=== PATIENT | male | born 1990 | race Hispanic/Latino ===

== ENCOUNTER 2022-09-04 23:27 | Emergency (ER) | payer OTHER ==
[~2022-09-04] VITALS: Ht 177.8 cm; Wt 174.2 kg
[2022-09-04] MEDS ORDERED: VANCOMYCIN 1G/250ML KIT 250 ML IV ONE (23:57)
[2022-09-04] MEDS ORDERED: VANCOMYCIN 500MG+NS 100ML 100 ML IV ONE (23:57)
[2022-09-04] MEDS ORDERED: TETANUS/DIPHTHERIA TOXOID [ADULT] 0.5 ML VIAL IM ONE (23:58)
[2022-09-05] MEDS ORDERED: DIPH,PERTUSS(ACELL),TET VAC/PF 0.5 ML VIAL IM ONE
[2022-09-05] MEDS ORDERED: 0.9%NACL 1000ML 1,000 ML IV SCH
[2022-09-05] MEDS ORDERED: VANCOMYCIN 1G VIAL IVPB ONE
[2022-09-05] MEDS ORDERED: ZOSYN 3.375GM +NS 50ML IVPB ONE
[2022-09-05] MEDS ORDERED: IBUPROFEN 800 MG TAB PO ONE
[2022-09-05] MEDS ORDERED: ACETAMINOPHEN 500 MG TABLET PO ONE
[2022-09-05] MEDS ORDERED: CLONIDINE HCL 0.1 MG TABLET PO ONE
[2022-09-05 00:09] LABS: BASOPHILS % (AUTO) 0.8 % (0.0-5.0); EOSINOPHILS % (AUTO) 0.7 % (0.0-8.0); HEMATOCRIT 45.7 % (42-54); LYMPHOCYTES % (AUTO) 25.1 % (21.0-51.0); MEAN CORPUSCULAR HEMOGLOBIN 26.2 pg (27.0-33.0); MEAN CORPUSCULAR HGB CONC 33.9 g/dL (32.0-36.0); MEAN CORPUSCULAR VOLUME 77.3 fL (79-99); MONOCYTES % (AUTO) 6.8 % (3.0-13.0); NEUTROPHILS % (AUTO) 66.4 % (40.0-77.0); PLATELET COUNT (AUTO) 294 K/uL (130-400); RED BLOOD CELL COUNT(AUTO) 5.91 MIL/uL (4.50-6.20); RED CELL DISTRIBUTION WIDTH 12.9 % (11.0-15.5); WHITE BLOOD COUNT (AUTO) 9.8 K/uL (4.8-10.8)
[2022-09-05 00:11] LABS: APPEARANCE,URINE CLEAR (CLEAR); BILIRUBIN,URINE NEGATIVE (NEGATIVE); COLOR,URINE YELLOW (YELLOW); GLUCOSE, URINE (UA) 500 mg/dL (NEGATIVE); KETONES,URINE NEGATIVE (NEGATIVE); LEUKOCYTE ESTERASE ,URINE 25 Leu/uL (NEGATIVE); NITRATE,URINE NEGATIVE (NEGATIVE); OCCULT BLOOD,URINE NEGATIVE (NEGATIVE); PROTEIN,URINE 30 mg/dL (NEGATIVE); UROBILINOGEN,URINE 0.2 mg/dL (0.2-1.0)
[2022-09-05 00:18] LABS: CALCIUM OXALATE CRYSTALS,UR RARE /LPF (None Seen); MUCUS,URINE FEW LPF (None Seen); SQUAMOUS EPITHELIAL CELL,UR FEW /HPF (0-2)
[2022-09-05 00:21] LABS: POTASSIUM 4.5 mmol/L (3.5-5.1)
[2022-09-05 00:25] LABS: ALBUMIN 3.4 g/dL (3.5-5.0); TOTAL PROTEIN, SERUM 8.4 g/dL (6.0-8.3)
[2022-09-05] MEDS ORDERED: CEPH500B PO (01:10)
[2022-09-05] MEDS ORDERED: IBUP-1493 PO (01:10)
[2022-09-05] MEDS ORDERED: LISI20TA24 PO (01:10)
[2022-09-05] MEDS ORDERED: METF-444 PO (01:10)
[2022-09-05] MEDS ORDERED: SULF1TAB42 PO (01:10)
[2022-09-05] MEDS ORDERED: METFORMIN HCL 500 MG TABLET PO ONE (01:30)
[2022-09-05] MEDS ORDERED: LISINOPRIL 20 MG TABLET PO ONE (01:30)
[2022-09-05] MEDS ORDERED: HYDRALAZINE 20MG/ML VIAL IV ONE (01:30)
[2022-09-05 02:00] VITALS: BP 151/93
== END 2022-09-05 03:49 | disposition home or self-care (01) ==
LOC: EDH 23:27
DX: L03.319 Cellulitis of trunk, unspecified (principal); E11.9 Type 2 diabetes mellitus without complications; I10 Essential (primary) hypertension; E78.5 Hyperlipidemia, unspecified; E66.01 Morbid (severe) obesity due to excess calories; Z68.43 Body mass index [BMI] 50.0-59.9, adult; Z79.899 Other long term (current) drug therapy; Z79.84 Long term (current) use of oral hypoglycemic drugs; Z91.010 Allergy to peanuts
CPT/HCPCS: 99291; 96365; 96361; 96375; 80053; 83690; 85025; 87040 ×2; 83605; 81001; 36415 ×2; 90714; 90471; 74176; J7030; J2543; J3370 ×2; 90715

== ENCOUNTER 2025-07-07 22:56 | Inpatient (IN) | payer SELFPAY ==
[~2025-07-07] VITALS: Ht 180.3 cm; Wt 176.4 kg
[~2025-07-07 22:56] MED LIST: CEPH500B PO; IBUP-1493 PO; LISI20TA24 PO; METF-444 PO; SULF1TAB42 PO
--- NOTE | 2025-07-07 23:21 | ERN ---
General Chief Complaint: Allergic Reaction Stated Complaint: C/O ALLERGIC REACTION Time Seen by MD: 23:00 History of Present Illness Initial Comments 34-year-old male no past medical history here for evaluation of shortness a breath and vomiting. Patient has not allergy to peanuts and earlier today had a candy that had peanuts in it. He was complaining of shortness a breath and tongue swelling. Just prior to arrival he had vomited once. He took a neighbors EpiPen around 8:00 p.m. however the symptoms returned thus he decided to come to emergency room for a evaluation Allergies: Coded Allergies: peanut (Unverified Allergy, Unknown, 07/02/17) Home Meds Active Scripts Ibuprofen (Motrin/Advil) 800 Mg Tab, 800 MG PO TID, #30 TAB Prov:SUSHANT SCALES MD 09/05/22 Sulfamethoxazole/Trimethoprim (Bactrim Ds Tablet) 1 Each Tablet, 1 TAB PO BID for 10 Days, #20 TAB 0 Refills Prov:SUSHANT SCALES MD 09/05/22 Cephalexin Monohydrate (Keflex) 500 Mg Cap, 500 MG PO QID for 30 Days, #30 CAP Prov:SUSHANT SCALES MD 09/05/22 Lisinopril (Lisinopril) 20 Mg Tablet, 20 MG PO DAILY, #30 TAB Prov:SUSHANT SCALES MD 09/05/22 Metformin HCl (Metformin HCl) 500 Mg Tablet, 500 MG PO BID, #60 TAB Prov:SUSHANT SCALES MD 09/05/22 Past Medical History Past Medical History: No Pertinent History Past Surgical History: Unknown Family History Family History: Negative Social History Social History: Negative Respiratory: (+) short of breath Gastrointestinal/Abdominal: (+) vomiting Review of Systems: was completed, & the rest were negative. Physical Exam Physical Exam Dictation GENERAL APPEARANCE : Uncomfortable appearing, obese, diaphoretic EYES lids/conjunctiva normal. EARS/NOSE/THROAT Mucous membranes moist, nares normal, lips/teeth normal uvula midline without oral pharyngeal erythema, exudate or swelling TMs normal bilate rally. No lymphangitis/lymphedema. HEAD/NECK normocephalic atraumatic, no facial trauma, neck is supple. RESPIRATORY respiratory effort normal, speaks in full sentences, no tripod position, no accessory muscle use. Lungs clear to auscultation without rhonchi, wheezes, rales CARDIAC Regular rate and rhythm, no edema. ABDOMINAL Soft, ND/NT. No evidence of fluid wave. No pulsatile masses on exam, rebound tenderness, Day sign or pain over Mcburney's point. MUSCLES/EXTREMITIES No abnormal range of motion, no swelling. SKIN Warm, pink and dry. No rashes, dermatoses, petechiae or lesions. NEUROLOGICAL Speech is clear and appropriate. Normal level of consciousness. Gait and coordination are normal. 5/5 strength in all extremities. PSYCH Normal mood and affect. Judgement/competence is appropriate MDM 34-year-old male here for evaluation of allergic reaction to peanuts after consuming chocolate with the peanuts in it. He took an EpiPen prior to arrival however symptoms returned. He is complaining of shortness a breath, tongue swelling and feeling of throat closing and had one episode of vomiting just prior to arrival. I will treat this currently as an anaphylactic reaction and give him another dose of epi, give fluids, give prednisone, give antihistamine and reassess. Re-evaluation 11:56 p.m.: Given that he has a swollen tongue, shortness a breath, and vomiting after epinephrine, he may have rebound symptoms if we are to discharge him home at this time. Therefore I will admit the patient for further management and evaluation ED Course Orders Procedure Category Date Status Time Epinephrine Pf 1mg PHA 07/07/25 Complete (1:1,000) (Adrenaline 23:30 0.9%Nacl 1000ml (Ns PHA 07/07/25 In Process 1000ml) 23:30 Epinephrine Pf 1mg PHA 07/07/25 Complete (1:1,000) (Adrenaline 23:10 Methylprednisolone PHA 07/07/25 Complete Succ 125mg (Solu-Medr 23:30 Diphenhydramine Hcl PHA 07/07/25 Complete (Benadryl Inj) 23:30 Current Medications Medications (Trade) Dose Ordered Sig/Isabela Route PRN Reason Start Time Stop Time Status Last Admin Dose Admin Diphenhydramine HCl (BENAdryl INJ) 25 mg ONCE ONCE IV 07/07/25 23:30 07/07/25 23:31 DC 07/07/25 23:22 Epinephrine HCl (ADRENaline PF 1MG AMP) 0.3 mg ONCE ONCE IM 07/07/25 23:30 07/07/25 23:31 DC 07/07/25 23:20 Epinephrine HCl (ADRENaline PF 1MG AMP) 1 mg STK-MED ONCE .ROUTE 07/07/25 23:10 07/07/25 23:10 DC Methylprednisolone Sodium Succinate (Solu-medROL 125MG) 125 mg ONCE ONCE IM 07/07/25 23:30 07/07/25 23:31 DC 07/07/25 23:22 Sodium Chloride 1,000 ml @ 0 mls/hr Q0M IV 07/07/25 23:30 08/06/25 23:29 07/07/25 23:23 Vital Signs Date Time Temp Pulse Resp B/P (MAP) Pulse Ox O2 Delivery O2 Flow Rate FiO2 07/07/25 22:59 97.2 102 20 168/103 97 Room Air DX & DISP Disposition: Inpatient Departure Impression: Primary Impression: Anaphylactic reaction Condition: Stable Referrals: SELF,REFERRAL (PCP) MAYLIN GOLDSTEIN MD Jul 07, 2025 23:21
[2025-07-07] MEDS: 0.9%NACL 1000ML 1,000 ML IV SCH (23:23)
[2025-07-08 00:30] LABS: CREATININE 1.0 mg/dL (0.5-1.3); GLOMERULAR FILTR. RATE CALC 100.0 mL/min (>90); GLUCOSE,RANDOM 310.0 mg/dL (70-105); SODIUM SERUM 135.0 mmol/L (136-145); UREA NITROGEN, BLOOD 11.0 mg/dL (7-18)
[2025-07-08 00:35] LABS: IMMATURE GRANULOCYTE ABSOLUTE 0.05 K/uL (0-1); NUCLEATED RED BLOOD CELLS 0.0 % (0.0-0.19); PLATELET COUNT (AUTO) 327 K/uL (130-400); RED BLOOD CELL COUNT(AUTO) 6.06 MIL/uL (4.50-6.20); RED CELL DISTRIBUTION WIDTH 13.3 % (11.0-15.5); WHITE BLOOD COUNT (AUTO) 14.8 K/uL (4.8-10.8)
--- NOTE | 2025-07-08 01:02 | HP ---
[facility] PH[facility] Date of Service: Jul 08, 2025 Time of Service: 01:02 PCP: Self Referral HISTORY OF PRESENT ILLNESS: This is a 34 year old male morbidly obese with no pertinent medical and surgical history who was brought by to the ED for complaints of shortness of breath and vomiting prior to Er arrival today.Patient reports he has allergy to peanuts and gave him chocolate candy with cashew nuts on it that they both didnt know and after swallowing it patient started itching on his ears and started having hoarse voice,tongue began to swell and face and became short of breath as per neighbor has Epipen and gave him Epi and po Benadryl,symptoms was not relieved so patient came to the ED for evaluation. Upon ER arrival patient was given Epinephrine 0.3mg IM,Benadryl 25 mg IV,Solumedrol 125 mg IV and NS 1 Liter.Patient symptoms have subsided.Seen and examined patient in the ED awake,alert and coherent,patient reports he is able to swallow his saliva now,speech is clear and tongue swelling has subsided.Patient denies fever,chills,chest pain,cough and shortness of breath. Latest vital signs temperature 97.2, heart rate 100, blood pressure 158/82 saturation 98% on room air. Labs: WBC 14, hemoglobin 16, hematocrit 46, platelet count 327. Sodium 135, potassium 3.2, chloride 97 random glucose 310. We will admit patient for further medical management. REVIEW OF SYSTEMS CONSTITUTIONAL: Denies fevers, chills, or night sweats. No unintentional weight loss reported. NEUROLOGICAL: Denies headache, amaurosis fugax, motor weakness, sensory deficit, vertigo/spinning sensation, gait abnormalities, or tremors. ENT: No hearing loss, otalgia, otorrhea, rhinitis, rhinorrhea, hoarseness, or sore throat. CARDIOVASCULAR: Denies any exertional angina, dyspnea on exertion, orthopnea, paroxysmal nocturnal dyspnea, palpitations, life-threatening arrhythmias, claudication. PULMONARY: Denies any shortness of breath, cough, phlegm/sputum, hemoptysis, pleuritic chest pain. SLEEP: Denies morning headaches, daytime somnolence or napping. Denies difficulty falling asleep, staying asleep, waking from sleep. Denies knowledge of snoring. GASTROINTESTINAL: Denies any type of dysphagia to either liquids or solids. Denies nausea, vomiting, pyrosis, early satiety, abdominal pain, diarrhea, constipation, or changes in stool consistency or caliber. Denies coffee-ground emesis, hematemesis, hematochezia, or melanotic stools. GENITOURINARY: Denies frequency, urgency, nocturia, hematuria or incontinence (Storage/Irritative symptoms.) Low urinary stream, straining to void, urinary intermittency or hesitancy, splitting of the voiding stream, terminal dribbling. ENDOCRINOLOGIC: Denies polyuria, polydipsia, polyphagia or heat/cold intolerances. HEMATOLOGIC: Denies thrombophilia/previous clots, or coagulopathy/bleeding disorders. ONCOLOGIC: Denies personal history of malignancy. DERMATOLOGIC: Denies rashes or pruritus. PSYCHIATRIC: Denies any suicidal or homicidal ideation. Denies hallucinations. PAST MEDICAL HISTORY: [ Patient denies ] PAST SURGICAL HISTORY: [ Patient denies ] PAST SOCIAL HISTORY: [ Patient lives with . Patient denies alcohol tobacco and recreational drug use ] FAMILY HISTORY: [ Hypertension and diabetes ] Coded Allergies: peanut (Unverified Allergy, Unknown, 07/02/17) PHYSICAL EXAM GENERAL APPEARANCE: The patient is awake, alert, and oriented, in no acute cardiopulmonary distress. NEUROLOGICAL: Cranial nerves II-XII grossly intact. Motor is 5/5 in bilateral upper and lower extremities proximal to distal. No sensory deficits. HEENT: Face is symmetric. Pupils are equal and reactive. Extraocular movements are intact. NECK: Supple. No JVD. No thyromegaly. No submental, submandibular, pre- /postauricular, occipital or supraclavicular lymphadenopathy. CHEST: Normal chest expansion. No Telemetry. LUNGS: Absence of any rales, rhonchi or any wheezing. CARDIOVASCULAR: Regular. S1 and S2 normal. No appreciable rubs, murmurs or gallops. ABDOMEN: Soft, nontender, and nondistended. There is no rebound, voluntary guarding, or rigidity. : Deferred. No [place]. EXTREMITIES: Non-edematous and not cyanotic. No clubbing. Good capillary refill. SKIN: No skin breakdown. Vital Sign (Last 24 Hours) 07/07/25 07/08/25 22:59 00:30 Temp 97.2 Pulse 100 Resp 19 B/P (MAP) 158/82 Pulse Ox 98 O2 Delivery Room Air* O2 Flow Rate 0 FiO2 21 LABS: Laboratory: Test 07/08/25 00:17 Range/Units White Blood Count 14.8 H 4.8-10.8 K/uL Red Blood Count 6.06 4.50-6.20 MIL/uL Hemoglobin 16.1 14.0-18.0 g/dL Hematocrit 46.8 42-54 % Mean Corpuscular Volume 77.2 L 79-99 fL Mean Corpuscular Hemoglobin 26.6 L 27.0-33.0 pg Mean Corpuscular Hemoglobin Concent 34.4 32.0-36.0 g/dL Red Cell Distribution Width 13.3 11.0-15.5 % Platelet Count 327 130-400 K/uL Mean Platelet Volume 9.8 7.5-10.5 fL Immature Granulocyte % (Auto) 0.3 0-1 % Neutrophils (%) (Auto) 68.0 40.0-77.0 % Lymphocytes (%) (Auto) 25.5 21.0-51.0 % Monocytes (%) (Auto) 5.6 3.0-13.0 % Eosinophils (%) (Auto) 0.3 0.0-8.0 % Basophils (%) (Auto) 0.3 0.0-5.0 % Neutrophils # (Auto) 10.1 H 1.8-7.7 K/uL Lymphocytes # (Auto) 3.8 1.0-4.8 K/uL Monocytes # (Auto) 0.8 0.1-1.0 K/uL Eosinophils # (Auto) 0.04 0.00-0.70 K/uL Basophils # (Auto) 0.04 0.00-0.20 K/uL Absolute Immature Granulocyte (auto 0.05 0-1 K/uL Nucleated Red Blood Cells 0.0 0.0-0.19 % Sodium Level 135 L 136-145 mmol/L Potassium Level 3.2 L 3.5-5.1 mmol/L Chloride Level 97 L 101-111 mmol/L Carbon Dioxide Level 27 21-32 mmol/L Blood Urea Nitrogen 11 7-18 mg/dL Creatinine 1.0 0.5-1.3 mg/dL Glomerular Filtration Rate Calc 100 >90 mL/min Random Glucose 310 H 70-105 mg/dL Total Calcium 8.5 8.5-10.1 mg/dL Current Medications Medications (Trade) Dose Ordered Sig/Isabela Route PRN Reason Start Time Stop Time Status Last Admin Dose Admin Sodium Chloride 1,000 ml @ 0 mls/hr Q0M IV 07/07/25 23:30 08/06/25 23:29 07/07/25 23:23 100 MLS/HR DIAGNOSTICS / RADIOLOGY: [ ] ASSESSMENT: Anaphylactic reaction 2/2 cashew nut ingestion-improved POA Angioedema POA- improved POA Hypokalemia POA Hyperglycemia POA Hyponatremia POA Hypochloremia POA Morbid obesity POA PLAN: We will admit patient in medical surgical We will start on clear liquid advanced as tolerated We will start on famotidine 20 mg IV b.i.d. for GI prophylaxis We will start NS @ 75 ml / hr x2 bags and re evaluate We will start on Solu-Medrol 40 mg IV b.i.d. x2 doses We will replace electrolytes as needed per protocol We will start on insulin sliding scale AC & HS with hypoglycemia protocol We will add prn medication for fever,pain,cough , nausea ,vomiting and itching We will reconcile home meds once medlist available We will obtain chest x-ray We will request labs in am Further orders to follow depending on above results Case discussed with attending physician and came up with above treatment and plan of care. ADVANCED CARE PLANNING 1. Which of the following were discussed? Hospice Care - No Therapeutic options - Yes Advance Directives - No Other discussions - 2. Discussed with who? Patient 3. Voluntary nature of this service was explained to the patient? Yes 4. Amount of time spent - _23 min 5. Reviewed by Physician? (if this service was performed by NPP) Yes Patient seen and examined by me. Agree with note by [employer] SEE ADDITIONAL ORDERS PER CHART DISCUSSED WITH NURSING STAFF JOSEPH CENTENO Jul 08, 2025 01:02
[2025-07-08] MEDS ORDERED: GLUCAGON 1MG KIT 1 MG ML IM PRN (01:30)
[2025-07-08] MEDS ORDERED: DEXTROSE 50%-WATER 50 ML DISP.SYRIN IV PRN (01:30)
[2025-07-08] MEDS ORDERED: MAGNESIUM 2GM PREMIX 50ML 50 ML IV PRN (01:30)
[2025-07-08] MEDS ORDERED: PoTASSium chl 10% ELIXIR 20MEQ 20 MEQ/15 ML UDCUP PO PRN (01:30)
[2025-07-08] MEDS: 0.9%NACL 1000ML 1,000 ML IV SCH (01:31)
[2025-07-08] MEDS: PoTASSium chloRIDE 20MEQ ER 20 MEQ ERTAB PO PRN (01:35)
[2025-07-08 01:55] VITALS: BP 153/86; PULSE 100; RESP 19; TEMP 98.6; O2SAT 99
--- NOTE | 2025-07-08 02:37 | NUR ---
PATIENT DECIDES TO LEAVE AMA, AMA FORM SIGNED
[2025-07-08] MEDS ORDERED: Solu-medROL 40MG VIAL IVP SCH (09:00)
[2025-07-08] MEDS ORDERED: FAMOTIDINE 20MG VIAL IV SCH (09:00)
== END 2025-07-08 02:37 | disposition left against medical advice (07) | DRG 916 ==
LOC: EDH 22:56 → EDHIP 22:57
PROVIDERS: ADMIT Internal Medicine; ATTEND Internal Medicine
DX: T78.2XXA Anaphylactic shock, unspecified, initial encounter (principal); E87.1 Hypo-osmolality and hyponatremia; E66.01 Morbid (severe) obesity due to excess calories; E87.6 Hypokalemia; E87.8 Other disorders of electrolyte and fluid balance, not elsewhere classified; Z53.29 Procedure and treatment not carried out because of patient's decision for other reasons; T78.3XXA Angioneurotic edema, initial encounter; Z82.49 Family history of ischemic heart disease and other diseases of the circulatory system; Z83.3 Family history of diabetes mellitus; Z91.010 Allergy to peanuts; Y92.89 Other specified places as the place of occurrence of the external cause
CPT/HCPCS: 36415; 80048; 83036; 85025; 99285; G0378; J0169; J1200; J2919; J7030